=== PATIENT | female | born 2000 | race Two or more races ===

== ENCOUNTER 2025-04-14 15:24 | Emergency (ER) | payer MEDICAID, SELFPAY ==
[2025-04-14 15:25] VITALS: BMI 36.8
[2025-04-14 16:10] VITALS: BP 116/82; PULSE 78; RESP 18; TEMP 37.1; O2SAT 96
--- NOTE | 2025-04-14 16:19 | XR_ITS ---
Examination: Abdomen sonogram, Limited Date and time of exam: April 14, 2025, 1454 hrs. Indications: Epigastric pain nausea vomiting and blood in the stools today Technique: Real-time irwin scale transabdominal sonographic images of the upper abdomen obtained. Findings: Normal gallbladder. Normal common bile duct 0.3 cm. Pancreatic head 2.4 cm. Liver normal size 13.3 cm No focal liver lesions. Normal hepatopedal portal venous flow. Patent IVC. Impression: Normal gallbladder. Normal common bile duct
--- NOTE | 2025-04-14 16:20 | PD.EDNV ---
Nausea/Vomit./Diarrhea-RME/HPI General Chief complaint: Abdominal Pain Stated complaint: N/V/ABD PAIN Time Seen by Provider: 04/14/25 15:41 Arrival date/time: 04/14/25 15:24 RME / HPI RME / HPI Narrative: 24-year-old female patient came in for evaluation regarding vomiting. Patient's been having vomiting. Eating partially cooked pork yesterday, associated with upper abdominal pain. More in the epigastric area. Patient cannot take anything down no fever noted no diarrhea no constipation. Denies any other complaints Related Data Home Medications ?Medication ?Instructions ?Recorded ?Confirmed albuterol sulfate 90 mcg/actuation 2 puff inhalation Q6H PRN Wheezing 05/07/20 05/07/20 aerosol inhaler Previous Rx's ?Medication ?Instructions ?Recorded acetaminophen 650 mg 650 mg PO Q8H PRN fever or pain 08/07/19 tablet,extended release #30 tabs ibuprofen 600 mg tablet 600 mg PO Q8H PRN fever or pain 08/07/19 #30 tabs loratadine 10 mg tablet (Claritin) 10 mg PO QDAY PRN allergy symptoms 03/31/20 #20 tabs hydrocodone 5 mg-acetaminophen 325 1 tab PO TID PRN pain #30 tabs 05/08/20 mg tablet ([place]) ibuprofen 800 mg tablet 800 mg PO Q8H PRN pain #30 tabs 05/08/20 cetirizine 10 mg capsule (Zyrtec) 10 mg PO QDAY PRN allergy symptoms 01/05/21 #30 caps fluticasone propionate 50 2 spray intranasal QDAY PRN 01/05/21 mcg/actuation nasal allergy symptoms #16 grams spray,suspension (Flonase Allergy Relief) furosemide 20 mg tablet 20 mg PO QAM #2 tabs 04/20/22 ibuprofen 600 mg tablet 600 mg PO Q6H PRN pain #10 tabs 08/14/22 ibuprofen 600 mg tablet 600 mg PO Q6H PRN pain #10 tabs 08/14/22 sulfamethoxazole 800 1 tab PO BID #20 tabs 04/11/24 mg-trimethoprim 160 mg tablet (Bactrim DS) ibuprofen 800 mg tablet 800 mg PO Q8H PRN pain #30 tabs 04/14/25 ondansetron HCl 4 mg tablet 4 mg PO TID PRN nausea and 04/14/25 vomiting 5 days #20 tabs Allergies Allergy/AdvReac Type Severity Reaction Status Date / Time orange Allergy Intermediate LIPS Verified 08/14/22 02:48 SWELL,BUMPS ON LIPS. tomato Allergy Intermediate LIPS SWELL Verified 08/14/22 02:48 AND GET BUMPS Review of Systems Review of Systems Narrative Review of Systems: Review of system reviewed and within normal limits except mentioned in HPI ED Exam Narrative Physical exam: VITAL SIGNS: Reviewed. GENERAL APPEARANCE: Alert and interactive, follows commands, no acute distress, HEAD AND FACE: Non-traumatic. ENT: PERRL, pink conjunctivitis, eyelid no trauma, Mucous membrane moist. NECK: Supple, nontender, no nuchal rigidity. CHEST: No tenderness, no crepitus, no paradoxical movement, no retractions. LUNGS: Clear, well ventilated, symmetric, no rales, no wheezing, no ronchi, no stridor, good breath sounds bilaterally. HEART: Regular rate, regular rhythm, no murmur, no gallops. ABDOMEN: Soft, positive bowel sounds, nondistended, no guarding, epigastric tenderness, no rebound, no masses, RECTAL: Deferred. GENITAL: Deferred. NEUROLOGICAL: Gross motor function intact sensory function intact, Appropriate for age. MUSCULOSKELETAL: low back nontender, full range of motion. EXTREMITIES: Nontender, full range of motion. SKIN: Color pink, dry, no rash, no lacerations, no abrasions, no contusions. LYMPHATICS: Deferred. Course Quality Measures none Orders Category Date Time Status US gall bladder Stat Exams 04/14/25 16:19 Completed CBC Stat Lab 04/14/25 16:49 Completed Comprehensive Metabolic Panel Stat Lab 04/14/25 16:49 Completed HCG Qualitative,Urine Stat Lab 04/14/25 18:18 Completed Lipase Stat Lab 04/14/25 16:49 Completed Prothrombin Time with INR Stat Lab 04/14/25 16:49 Completed UA, C/S IF [Urinalysis, C/S if Indicated] Stat Lab 04/14/25 18:18 Completed Famotidine Inj [Pepcid Inj] Med 04/14/25 16:19 Discontinued 20 mg IVP X1 ONE Ketorolac Inj [Toradol Inj] Med 04/14/25 17:37 Discontinued 30 mg IVP X1 ONE Ondansetron Inj [Zofran Inj] Med 04/14/25 16:19 Discontinued 4 mg IVP X1 ONE Ringers Lactated 1000 ml [Lactated Ringers] 1,000 ml Med 04/14/25 16:19 Discontinued IV 999 mls/hr Vital Signs Vital signs: Vital Signs Temperature 98.8 F 04/14/25 16:10 Pulse Rate 78 04/14/25 16:10 Respiratory Rate 18 04/14/25 16:10 Blood Pressure 116/82 04/14/25 16:10 Pulse Oximetry (%) 96 04/14/25 16:10 Oxygen Delivery Method Room Air 04/14/25 16:10 Nausea/Vomiting/Diarrhea [facility] Narrative [facility] Narrative:: 24-year-old female patient came in for evaluation regarding vomiting. Patient's been having vomiting. Eating uncooked pork yesterday, associated with upper abdominal pain. More in the epigastric area. Patient cannot take anything down no fever noted no diarrhea no constipation. Denies any other complaints Ultrasound of the gallbladder came back unremarkable.. CBC showed leukocytosis of 12,000. CMP unremarkable urinalysis no UTI patient received IV fluids, Pepcid IV Toradol IV Patient is tolerating p.o. fluids prior to discharge. Patient data External records reviewed:: None Clinical information provided by:: patient Social determinants that could affect healthcare access:: none Patient has the following chronic illnesses:: None How is presenting disease/condition affected by chronic disease/condition?: no chronic disease Evaluation data The following diagnostics were reviewed and interpreted by me:: lab results and radiology exam(s) Lab and/or radiology exams considered but not ordered:: None Interpretation Summary: See results [facility] Medications / Prescriptions Medications / Prescriptions considered but not ordered:: None none none Medication administrations:: Medication Administration History Discontinued Medications Famotidine (Famotidine Inj 10 Mg/Ml Vial 2 Ml) 20 mg IVP X1 ONE Stop: 04/14/25 16:20 Last Admin: 04/14/25 17:21 Dose: 20 mg Documented By: RU Lactated Ringer's (Lactated Ringers) 1,000 mls @ 999 mls/hr IV .Q1H1M ONE Stop: 04/14/25 17:19 Last Infusion: 04/14/25 18:17 Dose: Infused Documented By: Admin: 04/14/25 17:02 Dose: 999 mls/hr Documented By: MF Ketorolac Tromethamine (Ketorolac Inj 30 Mg/Ml Vial) 30 mg IVP X1 ONE Stop: 04/14/25 17:38 Last Admin: 04/14/25 18:17 Dose: 30 mg Documented By: RU Ondansetron HCl (Ondansetron Inj 2 Mg/Ml Inj 2 Ml) 4 mg IVP X1 ONE; Protocol Stop: 04/14/25 16:20 Last Admin: 04/14/25 17:22 Dose: 4 mg Documented By: RU Toradol Zofran IV fluids Pepcid Consultations Consultation(s) initiated? (list below): No Diagnosis Nausea Differential Diagnosis: food poisoning, gastroenteritis and dehydration Most likely diagnosis given after review of the tests above:: Food poisoning Admission Indicated Admission indicated?: not indicated Admission Request Was there a request for admission?: No Disposition Plan Disposition Plan: Discharge Discharge Attestation Discharge Attestation: The patient was given an opportunity to ask questions and understood the discharge instructions. Discharge instructions specifically effects, indications for sooner follow up or return to the emergency department, and the expected course of current diagnosis. Patient condition: Stable Discharge Plan Plan Patient Disposition: HOME (Self Care) Discharge Disposition comment: Stable Prescriptions/Referrals Prescriptions/Med Rec: New ondansetron HCl 4 mg tablet 4 mg PO TID PRN (Reason: nausea and vomiting) 5 Days Qty: 20 0RF ibuprofen 800 mg tablet 800 mg PO Q8H PRN (Reason: pain) Qty: 30 0RF No Action acetaminophen 650 mg tablet extended release 650 mg PO Q8H PRN (Reason: fever or pain) Qty: 30 0RF Rx Instructions: swallow whole; do not crush, chew, break, dissolve, cut, or open ibuprofen 600 mg tablet 600 mg PO Q8H PRN (Reason: fever or pain) Qty: 30 0RF Rx Instructions: prn pain / fever albuterol sulfate 90 mcg/actuation Hfa Aerosol Inhaler 2 puff INHALATION Q6H PRN (Reason: Wheezing) ibuprofen 800 mg tablet 800 mg PO Q8H PRN (Reason: pain) Qty: 30 0RF hydrocodone-acetaminophen [[place]] 5-325 mg tablet 1 tab PO TID MDD 6 PRN (Reason: pain) Qty: 30 0RF loratadine [Claritin] 10 mg tablet 10 mg PO QDAY PRN (Reason: allergy symptoms) Qty: 20 0RF fluticasone propionate [Flonase Allergy Relief] 50 mcg/actuation spray,suspension 2 spray INTRANASAL QDAY PRN (Reason: allergy symptoms) Qty: 16 0RF Rx Instructions: administer into each nostril Zyrtec 10 mg capsule 10 mg PO QDAY PRN (Reason: allergy symptoms) Qty: 30 0RF furosemide 20 mg tablet 20 mg PO QAM Qty: 2 0RF sulfamethoxazole-trimethoprim [Bactrim DS] 800-160 mg tablet 1 tab PO BID Qty: 20 0RF ibuprofen 600 mg tablet 600 mg PO Q6H PRN (Reason: pain) Qty: 10 0RF ibuprofen 600 mg tablet 600 mg PO Q6H PRN (Reason: pain) Qty: 10 0RF Referrals: No Primary/Family,Physician [Primary Care Provider] - In 1 week Problem List Clinical Impression: Food poisoning Patient/Caregiver Discharge Instructions Discharge Activity: activity as tolerated Education Materials: ED Food Poisoning (Adult) Additional Instructions: Thank you for the opportunity for serving you today. You are stable for discharged . You are advised to: Follow-up with your PCP in 1 to 2 days Return to ED for worsening of symptoms Increase oral fluids including Pedialyte Take medication as prescribed Print Language: Arabic Stand Alone Forms: Yoly Award Info., Patient Portal Info Letter JEANNETTE/LORENE Supervising Physician JEANNETTE/LORENE Supervising Physician: MD Roger
[2025-04-14] MEDS: RINGERS LACTATED 1000 ML 1,000 ML 999 ML IV (17:02)
[2025-04-14 17:12] LABS: Basophils # (Auto) 0.0 Thou/mm3 (0.0-0.2); Basophils % (Auto) 0 % (0-2.5); Eosinophils # (Auto) 0.1 Thou/mm3 (0.0-0.5); Eosinophils % (Auto) 1 % (0-10); Hematocrit 38.4 % (36.0-46.0); Hemoglobin 13.1 g/dL (12.0-16.0); Immature Granulocytes Auto 0.02 Thou/mm3 (0.00-0.00); Lymphocytes # (Auto) 0.7 Thou/mm3 (1.0-4.8); Lymphocytes % (Auto) 6 % (10-50); Mean Corpuscular HGB Conc 34.1 g/dl (31.0-37.0); Mean Corpuscular Hemoglobin 33.4 pg (25.0-35.0); Mean Corpuscular Volume 98 fL (80-100); Monocytes # (Auto) 0.4 Thou/mm3 (0.0-0.8); Monocytes % (Auto) 4 % (0-12); Neutrophils # (Auto) 10.8 Thou/mm3 (1.8-7.7); Neutrophils % (Auto) 90 % (37-80); Nucleated Red Blood Cell # 0.00 Thou/mm3 (0.00-0.00); Nucleated Red Blood Cell % 0 /100 WBC (0); Platelet Count 261 Thou/mm3 (140-440); RDW Standard Deviation 48.1 fL (36.4-46.3); Red Blood Count 3.92 Miln/mm3 (4.00-5.20); White Blood Count 12.0 Thou/mm3 (3.6-11.0)
[2025-04-14] MEDS: FAMOTIDINE INJ 10 MG/ML VIAL 2 ML 20 MG IVP (17:21)
[2025-04-14] MEDS: ONDANSETRON INJ 2 MG/ML INJ 2 ML 4 MG IVP (17:22)
[2025-04-14 17:36] LABS: INR 1.0 (0.9-1.3); Prothrombin Time 10.9 Seconds (9.0-12.2)
[2025-04-14 17:38] LABS: Alanine Aminotransferase 7 U/L (10-49); Albumin, Serum 4.2 gm/dL (3.5-5.0); Albumin/Globulin Ratio 1.8 (1.2-2.2); Alkaline Phosphatase 62 U/L (46-116); Anion Gap 11 (7-16); Aspartate Amino Transferase 13 U/L (0-34); BUN/Creatinine Ratio 15 Ratio (12-20); Bilirubin,Total 0.6 mg/dL (0.3-1.2); Blood Urea Nitrogen 9 mg/dL (9-23); Calcium 9.4 mg/dL (8.3-10.6); Calcium (Corrected) 9.4 mg/dL (8.5-10.1); Carbon Dioxide 25.5 mMol/L (20.0-31.0); Chloride 106 mMol/L (98-107); Creatinine (Component) 0.6 mg/dL (0.6-1.3); Estimated Creatinine Clearance 143.7 mL/min (>60); Globulin 2.3 gm/dL (2.3-3.5); Glucose 87 mg/dL (74-106); Lipase 26 U/L (12-53); Osmolality,Calculated 280 (275-295); Potassium 3.5 mMol/L (3.4-5.1); Sodium 142 mMol/L (136-145); Total Protein 6.5 gm/dL (5.7-8.2); eGFR > 60 See Note
[2025-04-14] MEDS: KETOROLAC INJ 30 MG/ML VIAL IVP (18:17)
[2025-04-14 18:36] LABS: Collection Type, Urine Clean Catch
[2025-04-14 18:49] LABS: Bilirubin,Urine Negative (Negative); Blood,Urine Negative (Negative); Clarity,Urine Clear (Clear/Hazy); Color,Urine Yellow (Lt Yel-Yel); Culture Indicated,Urine Not Indicated; Glucose, Urine Negative (Negative); Ketones,Urine 2+ (Negative); Leukocyte Esterase,Urine Negative (Negative); Nitrite,Urine Negative (Negative); PH,Urine 6.5 (5.0-7.0); Protein,Urine Trace (Neg - Trace); RBC,Urine 3 /hpf (0-3); Specific Gravity,Urine 1.036 (1.001-1.035); Squamous Epithelial Cell,Urine 5 /hpf (0-5); Urobilinogen,Urine Negative mg/dL (0.0-1.0); WBC,Urine 1 /hpf (0-5)
[2025-04-14 18:51] LABS: HCG Qualitative,Urine Negative
[2025-04-14 19:28] VITALS: BP 122/69; PULSE 87; RESP 18; TEMP 36.6; O2SAT 98
== END 2025-04-14 19:29 | disposition home or self-care (01) ==
PROVIDERS: Nurse Practitioner Family; Emergency Provider Family Medicine
DX: A05.9 Bacterial foodborne intoxication, unspecified (principal)
CPT/HCPCS: 36415; 76705; 80053; 81001; 81025; 83690; 85025; 85610; 96361; 96374; 96375; 99283; J1885; J2405; J3490; J7120